=== PATIENT | female | born 1960 | race Caucasian/White ===

== ENCOUNTER → 2016-06-27 | Outpatient (CLI) | payer OTHER ==
--- NOTE | 2016-06-27 15:15 | PN ---
A 55-year-old female patient coming in for a yearly check regarding obstructive sleep apnea. This is a compliancy followup. Her last evaluation was in April 2015. She has mild TEJAS with an apnea score of 10 and she has been maintained on CPAP therapy at a pressure of 8 cm of water. She is very compliant, CPAP use for more than 4 hours is 100%, average CPAP use is 7.4 hours per night. Leak factor is around 20 liters and her AHI is down to 0.91 on treatment. She is using a Mirage FX nose mask, which is causing some degree of discomfort around her face, cheeks. As such, she is looking for alternatives. BP is 128/64, pulse 64, respirations 16, temperature 98.1, saturation 99% on room air. Weight is stable at 163. No weight gain or weight loss over the past one year and height is 5, 4. Neck size 14-1/4. GENERAL APPEARANCE: Calm, comfortable. HEENT: Crowding of the posterior pharynx. There is no goiter or neck masses. LUNGS: Clear to auscultation. Heart sounds are regular rate and rhythm. Normal S1, S2. ABDOMEN: Soft, nontender. No organomegaly. EXTREMITIES: No edema. No cyanosis or clubbing. IMPRESSION: 1. Symptomatic obstructive sleep apnea, mild with an apnea-hypopnea index of 10, well treated with CPAP pressure of 8 cm of water. 2. Facial pain related to the Mirage FX mask, needs an alternative mask. 3. Chronic pain. 4. Depression. 5. Migraine. 6. Osteoarthritis. 7. Chronic back pain. 8. Chronic neck pain. PLAN: 1. Continue CPAP at the same level of pressure. 2. Switch this patient to an AirFit P10 nose pillow. 3. Weight is stable at 163. 4. Good sleep hygiene measures. 5. See me back in a year's time.
== END | disposition home or self-care (01) ==
LOC: SLEEP 13:12
PROVIDERS: ATTEND Internal Medicine Critical Care Medicine
DX: G47.33 Obstructive sleep apnea (adult) (pediatric) (principal); G50.1 Atypical facial pain; G89.4 Chronic pain syndrome; F32.9 Major depressive disorder, single episode, unspecified; G43.109 Migraine with aura, not intractable, without status migrainosus; M19.90 Unspecified osteoarthritis, unspecified site; M54.9 Dorsalgia, unspecified; M54.2 Cervicalgia

== ENCOUNTER → 2017-07-10 | Outpatient (CLI) | payer OTHER ==
--- NOTE | 2017-07-10 20:16 | PN ---
PROGRESS NOTE 56-year-old female patient with known history of obstructive sleep apnea with an AHI of 10 currently on CPAP pressure of 8. Coming in for yearly checkup. Her weight has been stable at 162. She has been very compliant with CPAP machine. She is using AirFit P10 small size. Based on the compliance data the patient has been utilizing her CPAP every night. Average CPAP is around 6.2 hours per night. Her CPAP use for more than 4 hours 28/30. Leak factor is only 10L. AHI while on treatment is down to 1.7. She has no other new complaints for now. No other new onset comorbidities. Medication essentially unchanged. She is known to have multiple comorbidities including depression, chronic back pain, degenerative disc disease, osteoarthritis and migraines. Her pain is under good control for now. No restlessness in the lower extremities. REVIEW OF SYSTEMS: 12-point review of system was done. Positive findings are mentioned above in the history of present illness. No soreness in nose. Mask fit is good. No seizure activity. No altered mentation. No hypersomnia or sleepiness. No history of any motor vehicle accidents because of feeling drowsy or sleepy. She has chronic pain which is well controlled for now. No nocturnal heartburn, chest pain or shortness of breath. No sleepwalking or sleep talking. No other complaints otherwise. PHYSICAL EXAMINATION: BP is 135/58, pulse 47, respirations 16, temperature 98.1 saturation 98% on room air. Weight is 162, height is 5 feet 4 inches and BMI 27.8, with an [place] score of 10. General appearance: Calm and comfortable in no acute distress. Head is atraumatic, normocephalic. NECK: Supple. There is no JVD. No goiter or neck masses. LUNGS: Clear to auscultation. HEART: Sounds are regular rate and rhythm. Normal S1, S2. No S3, S4. No murmurs. ABDOMEN: Soft, nontender. No organomegaly. EXTREMITIES: No edema. No cyanosis or clubbing. Neurologically the patient is alert and oriented x3. There is no focal neurological deficits. Psychiatric: The patient has adequate mood and affect. IMPRESSION: 1. Obstructive sleep apnea with an AHI of 10 currently on a CPAP pressure of 8 with adequate clinical response and compliance. 2. Chronic pain. 3. Degenerative arthritis. 4. Migraines. 5. Depression. PLAN: 1. Continue treatment at the same level of pressure. 2. Refill the patient's AirFit P10 small size nose pillows. 3. Refill equipments and supplies. 4. Weight is stable. 5. Patient is benefiting from the treatment. See me back in a year's time in regard to obstructive sleep apnea. MMSIENNA / KIMMIEN: [id number] /
== END | disposition home or self-care (01) ==
LOC: SLEEP 15:38
PROVIDERS: ATTEND Internal Medicine Critical Care Medicine
DX: G47.33 Obstructive sleep apnea (adult) (pediatric) (principal); G89.29 Other chronic pain; M54.9 Dorsalgia, unspecified; M15.0 Primary generalized (osteo)arthritis; G43.909 Migraine, unspecified, not intractable, without status migrainosus; F32.9 Major depressive disorder, single episode, unspecified

== ENCOUNTER → 2017-12-07 | Outpatient (CLI) | payer OTHER | END | disposition home or self-care (01) | LOC: LABWHC1 12:35 | PROVIDERS: ATTEND Nurse Practitioner Acute Care | DX: I49.9 Cardiac arrhythmia, unspecified (principal) | CPT/HCPCS: 36415; 93005 ==

== ENCOUNTER → 2018-09-17 | Outpatient (CLI) | payer OTHER ==
--- NOTE | 2018-09-17 13:04 | PN ---
PROGRESS NOTE A 57-year-old female patient coming in for a yearly annual check regarding her obstructive sleep apnea. The patient has history of depression, chronic back pain, fibromyalgia in addition to obstructive sleep apnea. She has gained weight since her last evaluation and she attributes this to her depression and depression pill. She used to weigh 162 pounds. Currently she is up to 178. Nevertheless her CPAP therapy is still successful. She is on a pressure of 8. She is averaging 7.9 hours of CPAP use per night. Leak is 5 L/minute. AHI is down to 2.8 while on treatment. She is using AirFit P10 nose pillows and she is looking for alternatives. Her current [place] score is at 10. REVIEW OF SYSTEMS: Fourteen-point review of system was done. Positive findings are mentioned above in the history of present illness. Some nose irritation from the nose mask/pillows. No altered mentation. No hypersomnia. No headaches. No cough or sputum production. No history of any motor vehicle accident because of feeling drowsy or sleepy. PHYSICAL EXAMINATION: VITAL SIGNS: BP is 137/78, pulse 60, respirations 16, temperature 97.9, saturation 99% on room air, weight is 178, height is 5 feet 11 inches, BMI 30.5. GENERAL APPEARANCE: Calm, comfortable. HEAD: Atraumatic, normocephalic. NECK: Supple. No JVD. No goiter or neck mass. LUNGS: Clear to auscultation. HEART: Sounds regular rate and rhythm. Normal S1, S2. No S3. No murmurs. ABDOMEN: Soft, nontender. No organomegaly. EXTREMITIES: No edema. No cyanosis or clubbing. NEUROLOGIC: Alert and oriented x3. No focal neurological deficits. PSYCHIATRIC: Negative for anxiety or depression. IMPRESSION: 1. Symptomatic obstructive sleep apnea with an AHI of 10 currently on CPAP pressure of 8. 2. Depression. 3. Weight gain in order of 16 pounds, current body mass index is up to 30.5. 4. Fibromyalgia. 5. Depression. 6. Chronic back pain. 7. Migraines. PLAN: 1. Switch this patient to a DreamWear under the nose small size mask. 2. Keep same pressure setting. 3. Encourage weight loss. 4. Recommended psychiatric evaluation regarding her chronic depression. 5. See me back in a year's time in follow up. MMODL / IJN: [id number] /
== END | disposition home or self-care (01) ==
LOC: SLEEP 11:04
PROVIDERS: ATTEND Internal Medicine Critical Care Medicine
DX: G47.33 Obstructive sleep apnea (adult) (pediatric) (principal); F32.9 Major depressive disorder, single episode, unspecified; R63.5 Abnormal weight gain; M79.7 Fibromyalgia; M54.9 Dorsalgia, unspecified; G89.29 Other chronic pain; G43.909 Migraine, unspecified, not intractable, without status migrainosus; Z68.30 Body mass index [BMI] 30.0-30.9, adult; Z99.89 Dependence on other enabling machines and devices

== ENCOUNTER → 2020-03-16 | Outpatient (CLI) | payer OTHER ==
--- NOTE | 2020-03-16 15:50 | PN ---
PROGRESS NOTE Cynthia is 57, coming in for an annual check. Doing well while on CPAP. She has a history of obstructive sleep apnea and she remains on a CPAP pressure of 8 cm of water. She is in need of new supplies. During her last evaluation, I switched this patient from an AirFit P10 to a DreamWear. She likes the newer mask. She is willing to use the newer mask, which is an [id number] mask, small size. Based on the compliancy, the patient wears her CPAP every night without any interruptions, averaging around 8.2 hours of CPAP use per night. The patient is also leaking on the order of 26 L/minute, and her AHI while on treatment is down to 0.7. She has no specific complaints for now. Her weight has been stable. Her depression is stable. She has chronic back pain and fibromyalgia. This has not affected her sleep quality and the patient is waking up refreshed and alert during the day. No other issues for now. REVIEW OF SYSTEMS: Fourteen-point review of systems was done. Positive findings were all mentioned above in the history of present illness. PHYSICAL EXAMINATION: VITAL SIGNS: Her blood pressure is 160/67, pulse 74, respirations 16, temperature 98.2, saturation 98% on room air. Height is 5 feet 4 inches, weight is 125, BMI 30.2. GENERAL APPEARANCE: Calm, comfortable. HEAD: Atraumatic, normocephalic. NECK: Supple. No JVD. No goiter or neck masses. LUNGS: Clear to auscultation. HEART: Heart sounds are regular rate and rhythm. Normal S1, S2. No S3, S4. No murmurs. ABDOMEN: Soft, nontender. No organomegaly. EXTREMITIES: No edema. No cyanosis or clubbing. NEUROLOGIC: Awake and alert. There is no focal neurological deficit. PSYCHIATRIC: The patient has no anxiety or depression. IMPRESSION: 1. Obstructive sleep apnea, currently on CPAP pressure of 8 cm of water with excellent clinical response and compliancy. 2. Hypersomnia, improved. 3. History of depression. 4. History of chronic pain/fibromyalgia. 5. History of migraines. PLAN: 1. Keep CPAP at the same level of pressure. 2. Order a DreamWear [id number] small-sized mask. 3. Compliancy is excellent. The patient is responding to treatment. No need for any further adjustments. See me back in followup. MMODL / IJN: [id number] /
== END | disposition home or self-care (01) ==
LOC: SLEEP 14:45
PROVIDERS: ATTEND Internal Medicine Critical Care Medicine
DX: G47.33 Obstructive sleep apnea (adult) (pediatric) (principal); G47.10 Hypersomnia, unspecified; Z86.59 Personal history of other mental and behavioral disorders; Z99.89 Dependence on other enabling machines and devices; Z87.39 Personal history of other diseases of the musculoskeletal system and connective tissue

== ENCOUNTER → 2022-06-13 | Outpatient (CLI) | payer OTHER ==
--- NOTE | 2022-06-13 15:58 | P.PN ---
Subjective Progress Note Date: 06/13/22 61-year-old female patient with seeing me in follow-up in the sleep Center regarding her obstructive sleep apnea. Her last evaluation with me was on 08/02/2021. Note that the patient longtime CPAP user and her current machine is giving a segment that it has exceeded its life expectancy. She has contacted her DME and she was asked to comment and request for her new CPAP unit. The current CPAP unit was given to her back in 2013. This is set at a pressure of 8 cm of water. The patient is also using a dreamware nasal mask small size. She is very compliant. She averages around 7.8 hours of CPAP use per night. Overall CPAP compliance visit 100%. The leak is in the order of 19 L/m and her AHI is down to 0.8. No weight gain. No angina. No palpitations. No hypersomnia or sleepiness during the day. She is very much worried about the message on her machine and she is also worried that the machine is going to quit on her and she is requesting a new CPAP unit. BP is 144/76 with a pulse of 72 and respiration of 18 and a temperature of 98.0 and the pulse ox is 98% on room air oxygen. Her current [place] score is at 7 Gen. appearance the patient is calm and comfortable, not in acute respiratory distress The patient appeared well nourished and normally developed. Vital signs as documented. Head exam is unremarkable. No scleral icterus or corneal arcus noted. Neck is without jugular venous distension, thyromegaly, or carotid bruits. Carotid upstrokes are brisk bilaterally. Lungs are clear to auscultation and percussion. Cardiac exam reveals the PMI to be normally sized and situated. Rhythm is regular. First and second heart sounds normal. No murmurs, rubs or gallops. Abdominal exam reveals normal bowel sounds, no masses, no organomegaly and no aortic enlargement. Extremities are nonedematous and both femoral and pedal pulses are normal. Examination of the skin revealed no evidence of significant rashes, suspicious appearing nevi or other concerning lesions. Neurologically, the patient is awake and alert and the patient does not have any focal neurological deficit. Cranial nerves are essentially intact. Assessment Obstructive sleep apnea, successfully treated with a CPAP pressure of 8 cm of water and the patient has been a longtime CPAP user and she has been extremely compliant. Her treatment has remained successful over the years. Her current machine's motor has exceeded its life expectancy. Chronic hypersomnia related to obstructive sleep apnea, improved Chronic pain Chronic anxiety/depression Chronic fibromyalgia Chronic migraines Plan Will request a new CPAP unit for this patient and this will be set at the same pressure of 8 cm of water. She will be given a nasal mask, dreamware, under the nose small size. The patient will need to see me back in 30-90 days after obtaining her CPAP machine for another compliancy check. We'll continue to follow.
== END ==
LOC: SLEEP 15:11
PROVIDERS: ATTEND Internal Medicine Critical Care Medicine
DX: G47.33 Obstructive sleep apnea (adult) (pediatric) (principal); G89.29 Other chronic pain; F41.9 Anxiety disorder, unspecified; F32.A Depression, unspecified; M79.7 Fibromyalgia; Z99.89 Dependence on other enabling machines and devices; G43.709 Chronic migraine without aura, not intractable, without status migrainosus
CPT/HCPCS: 99212

== ENCOUNTER → 2022-09-05 | Outpatient (CLI) | payer OTHER ==
--- NOTE | 2022-09-05 15:49 | P.PN ---
Progress Note - Text Progress Note Date: 09/05/22 61-year-old female patient with known history of obstructive sleep apnea. The patient is coming in for a compliancy check regarding her new CPAP unit. The patient was given a ResMed 11 CPAP unit and her machine was updated. She remains on a CPAP pressure of 8 cm of water. She is using airfit N30 i nasal mask small size. She is benefiting from the treatment and she is quite happy with her new CPAP unit. The patient has no significant complaints. A compliance data evaluation and collection between 08/29/2022 and 08/31/2022 showed that the patient has been utilizing the machine every night and compliancy genital was in order of 100%. She's been averaging about 7 hours and 56 minutes of CPAP use per night. Her AHI down to 0.8. Her average leaks around 60 L/m. No odynophagia. No major hypersomnia or sleepiness during the day. No significant weight gain or weight loss over the past 6 months. No other complaints otherwise. No chest pain. No cardiac arrhythmias. No stroke. No congestion heart failure. Her current [place] score is at 6. BP is 144/82, pulse is 66, respirations 12, temperature 98.4 and the patient's body weight is 174 pounds. Pulse ox is 97% on room air oxygen. The patient appeared well nourished and normally developed. Vital signs as documented. Head exam is unremarkable. No scleral icterus or corneal arcus noted. Neck is without jugular venous distension, thyromegaly, or carotid bruits. Carotid upstrokes are brisk bilaterally. Lungs are clear to auscultation and percussion. Cardiac exam reveals the PMI to be normally sized and situated. Rhythm is regular. First and second heart sounds normal. No murmurs, rubs or gallops. Abdominal exam reveals normal bowel sounds, no masses, no organomegaly and no aortic enlargement. Extremities are nonedematous and both femoral and pedal pulses are normal. 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 Examination of the skin revealed no evidence of significant rashes, suspicious appearing nevi or other concerning lesions.Neurologically, the patient is awake and alert and the patient does not have any focal neurological deficit. Cranial nerves are essentially intact. Assessment Symptomatic obstructive sleep apnea, successfully treated with CPAP pressure of 8 cm of water. The patient is compliant to CPAP machine. She is responding and she is benefiting from the treatment. Compliancy check was done. Patient meets insurance standards and requirements for compliancy. Chronic hypersomnia, improved Fibromyalgia Migraine Chronic pain Anxiety Depression Plan Compliancy check was done and the patient is compliant. No need for any further adjustments in the pressure setting. Keep the same mask interface. Encourage weight loss. Continue CPAP therapy. See me back in a year's time and follow- up. The sleep Center. Treatment is successful. Patient is receiving headache and refills on a regular basis.
== END ==
LOC: 3 N SLEEP 15:14
PROVIDERS: ATTEND Internal Medicine Critical Care Medicine
DX: G47.33 Obstructive sleep apnea (adult) (pediatric) (principal); M79.7 Fibromyalgia; G43.909 Migraine, unspecified, not intractable, without status migrainosus; F41.9 Anxiety disorder, unspecified; F32.A Depression, unspecified; Z99.89 Dependence on other enabling machines and devices
CPT/HCPCS: 99212